=== PATIENT | female | born 1995 | race Caucasian/White ===

== ENCOUNTER 2020-01-24 12:15 | Emergency (ER) | payer OTHER ==
[~2020-01-24] VITALS: Ht 165.1 cm; Wt 160.0 kg
== END 2020-01-24 14:04 | disposition home or self-care (01) ==
LOC: ER 12:15
DX: R05 Cough (principal); Z20.828 Contact with and (suspected) exposure to other viral communicable diseases; J02.9 Acute pharyngitis, unspecified
CPT/HCPCS: 36415; 87635; 99283

== ENCOUNTER 2020-07-26 09:26 | Emergency (ER) | payer OTHER ==
[~2020-07-26] VITALS: Ht 165.1 cm; Wt 75.0 kg
[2020-07-26] MEDS ORDERED: ipratropium/albuterol 3ml nebule NEB ONE (09:50)
[2020-07-26] MEDS ORDERED: albuterol 2.5 MG/3 ML nebule NEB ONE (10:40)
[2020-07-26] MEDS ORDERED: predniSONE 20 mg tablet PO ONE (10:40)
[2020-07-26] MEDS ORDERED: ALBU6.7H9 INH (11:01)
[2020-07-26] MEDS ORDERED: PRED20TA PO (11:01)
[2020-07-26] MEDS ORDERED: BENZ-38 PO (11:01)
[2020-07-26 11:14] VITALS: BP 105/71
== END 2020-07-26 11:16 | disposition home or self-care (01) ==
LOC: ER 09:27
DX: J20.8 Acute bronchitis due to other specified organisms (principal); J45.909 Unspecified asthma, uncomplicated; F17.210 Nicotine dependence, cigarettes, uncomplicated; Z79.899 Other long term (current) drug therapy
CPT/HCPCS: 71046; 93005; 94640; 99284; J7512; 94760